=== PATIENT | male | born 1980 | race Asian ===

== ENCOUNTER 2021-10-16 20:10 | Emergency (ER) | payer OTHER ==
[2021-10-16 20:26] VITALS: BP 130/76; PULSE 80; TEMP 98.4; BMI 30.7
[2021-10-16] MEDS ORDERED: CEPHALEXIN MONOHYDRATE 500 MG CAPSULE (UD) ONE (20:29)
[2021-10-16] MEDS ORDERED: CEPHALEXIN MONOHYDRATE 500 MG CAPSULE (UD) PO ONE (20:29)
== END 2021-10-16 20:55 | disposition home or self-care (01) ==
LOC: FER 20:10
PROC: 0HQGXZZ Repair Left Hand Skin, External Approach (ICD-10-PCS; principal; 2021-10-16)
DX: S62.663B Nondisplaced fracture of distal phalanx of left middle finger, initial encounter for open fracture (principal); W26.8XXA Contact with other sharp object(s), not elsewhere classified, initial encounter
CPT/HCPCS: 73140-TC-LT-FY; 99283-25